=== PATIENT | female | born 1980 | race American Indian/Alaskan Native ===

== ENCOUNTER 2017-05-15 16:23 | Emergency (ER) | payer SELFPAY ==
[2017-05-15 16:35] VITALS: RESP 20
--- NOTE | 2017-05-15 18:22 | C.PDOC ---
History Of Present Illness Yakelin Tolbert is a 36 year old female, with no past medical history, who presents to the emergency department complaining of severe right sided facial and head pain, nasal congestion, and cough onset for x1 month. Patient reports having an ear, eye, and throat infection from the Flu in April. Patient went to the clinic and was given clarithromycin, polymyxin, vigamox, and zithromax with relief of symptoms but then it started again with symptoms waxing and waning. She denies any fever, nausea, vomit, rash, neck pain, shortness of breath or chest pain. No further medical complaints. PMD: None provided. Time Seen by Provider: 05/15/17 17:59 Chief Complaint (Nursing): Headache History Per: Patient History/Exam Limitations: no limitations Onset/Duration Of Symptoms: Days (x1 month) Current Symptoms Are (Timing): Still Present Pain Scale Rating Of: 8 Quality: Sharp Preceeding Symptoms: None Associated Symptoms: denies: Nausea, Vomiting Past Medical History Reviewed: Historical Data, Nursing Documentation, Vital Signs Vital Signs: Last Vital Signs Temp 99 F 05/15/17 16:31 Pulse 92 H 05/15/17 16:31 Resp 20 05/15/17 16:31 BP 127/81 05/15/17 16:31 Pulse Ox 99 05/15/17 18:27 Surgical History: No Surg Hx - [facility] Procedures TETANUS TOXOID ADMINIST (07/20/14) Family History: States: Unknown Family Hx - Social History Hx Tobacco Use: No Hx Alcohol Use: No Hx Substance Use: No - Immunization History Hx Tetanus Toxoid Vaccination: No Hx Influenza Vaccination: No Hx Pneumococcal Vaccination: No Review Of Systems Except As Marked, All Systems Reviewed And Found Negative. Constitutional: Positive for: Other (right sided facial and head pain). Negative for: Fever ENT: Positive for: Nose Congestion Respiratory: Positive for: Cough Gastrointestinal: Negative for: Nausea, Vomiting Skin: Negative for: Rash Physical Exam - Physical Exam Appears: No Acute Distress Skin: Normal Color, Warm, Dry Head: Atraumatic, Normacephalic Eye(s): bilateral: Normal Inspection, PERRL, EOMI Ear(s): Bilateral: Normal Nose: Normal Throat: Normal Neck: Normal, Normal ROM, Supple Lymphatic: No Adenopathy Cardiovascular: Rhythm Regular Respiratory: Normal Breath Sounds, No Accessory Muscle Use Gastrointestinal/Abdominal: Normal Exam, Soft, No Tenderness, No Guarding, No Rebound Extremity: Normal ROM, No Pedal Edema, No Deformity, No Swelling Neurological/Psych: Oriented x3, Normal Speech, Normal Motor, Normal Sensation ED Course And Treatment O2 Sat by Pulse Oximetry: 99 (RA) Pulse Ox Interpretation: Normal Medical Decision Making Medical Decision Making: Initial Impression: Headache Initial Plan: --Tylenol 975 mg PO --Motrin Tab 600 mg PO --Urinalysis --reevaluation Patient feeling much betyter after medication, will d/c with recommendation to return to ED if needed. Disposition - Disposition Disposition: HOME/ ROUTINE Disposition Time: 18:54 Condition: STABLE Forms: [facility] (Maltese), General Discharge Instructions - POA Present On Arrival: None - Clinical Impression Clinical Impression: Headache, Viral syndrome - Scribe Statement Cristian Mishra Provider Attestation: All medical record entries made by the Scribe were at my direction and personally dictated by me. I have reviewed the chart and agree that the record accurately reflects my personal performance of the history, physical exam, medical decision making, and the department course for this patient. I have also personally directed, reviewed, and agree with the discharge instructions and disposition.
[2017-05-15 18:58] VITALS: BP 121/78; PULSE 86; TEMP 98.6; O2SAT 100
== END 2017-05-15 19:04 | disposition home or self-care (01) ==
LOC: C.ER 16:23
DX: R51 Headache (principal); B34.9 Viral infection, unspecified

== ENCOUNTER 2018-04-11 16:13 | Emergency (ER) | payer OTHER ==
[2018-04-11 16:25] VITALS: O2SAT 99
[2018-04-11 16:36] VITALS: BMI 25.4
--- NOTE | 2018-04-11 16:49 | C.PDOC ---
History Of Present Illness 37 yr old F w no pmhx p/w headache and chills. Pt notes headache and chills over the past couple of days, worsening slowly. No neck stiffness, trauma or fall. Pt notes she did not get a flu shot this season. No cough, chest pain or sob. No abdominal pain, constipation or diarrhea. No dark or bloody stool or urinary complaints. No abnl vaginal d/c. No other complaints Time Seen by Provider: 04/11/18 16:47 Chief Complaint (Nursing): Headache Past Medical History Vital Signs: Last Vital Signs Temp 99.4 F 04/11/18 16:24 Pulse 81 04/11/18 16:24 Resp 20 04/11/18 16:24 BP 146/80 04/11/18 16:24 Pulse Ox 99 04/11/18 16:24 - [facility] Procedures TETANUS TOXOID ADMINIST (07/20/14) Family History: States: Unknown Family Hx - Social History Hx Tobacco Use: No Hx Alcohol Use: No Hx Substance Use: No - Immunization History Hx Tetanus Toxoid Vaccination: No Hx Influenza Vaccination: No Hx Pneumococcal Vaccination: No Review Of Systems Constitutional: Positive for: Chills, Weakness, Malaise. Negative for: Fever, Sweats, Weight loss Eyes: Negative for: Pain, Vision Change, Conjunctivae Inflammation, Eyelid Inflammation ENT: Negative for: Ear Pain, Ear Discharge, Nose Pain, Nose Congestion, Mouth Pain, Throat Swelling Cardiovascular: Negative for: Chest Pain, Palpitations, Orthopnea, Edema Respiratory: Negative for: Cough, Shortness of Breath, SOB with Excertion, Pleuritic Pain Gastrointestinal: Positive for: Nausea. Negative for: Vomiting, Abdominal Pain, Constipation, Melena, Hematochezia Genitourinary: Negative for: Dysuria, Frequency, Incontinence, Hematuria, Vaginal Discharge, Vaginal Bleeding, Pelvic Pain, Rash Musculoskeletal: Negative for: Neck Pain, Shoulder Pain Neurological: Positive for: Headache. Negative for: Weakness, Numbness, Change in Speech, Confusion, Seizures, Altered Mental Status, Dizziness Psych: Negative for: Anxiety, Depression, Psychosis, Suicidal ideation Physical Exam - Physical Exam Appears: Well, Non-toxic, No Acute Distress Skin: Normal Color, Warm Head: Atraumatic, Normacephalic, No Tenderness, No Abrasion, No Laceration Eye(s): bilateral: Normal Inspection Ear(s): Bilateral: Normal Nose: Normal, No Flaring Oral Mucosa: Moist Tongue: Normal Appearing, No Swelling, No Lesions Neck: Normal, Normal ROM, No Decreased ROM, No Trachea Midline, No Step Off Deformity, Supple, Other (no kerning or brudzinskis sign) Chest: Symmetrical, No Deformity, No Tenderness Cardiovascular: Rhythm Regular, No Rhythm Irregular Respiratory: Normal Breath Sounds, No Decreased Breath Sounds, No Accessory Muscle Use Gastrointestinal/Abdominal: Normal Exam, No Tenderness, No Mass, No Distention Back: Normal Inspection, No CVA Tenderness Extremity: Normal ROM, No Tenderness, No Pedal Edema, No Calf Tenderness, Capillary Refill (normal), No Deformity, No Swelling Extremity: Bilateral: Atraumatic Pulses: Left Dorsalis Pedis: Normal, Right Dorsalis Pedis: Normal Neurological/Psych: Oriented x3, Normal Speech, Normal Cognition, Normal Cranial Nerves, No Cerebellar Signs, Normal Motor, Normal Sensation Gait: Steady Extremity: Right: No Drift, Left: No Drift, Upper: No Drift, Lower: No Drift ED Course And Treatment - Laboratory Results Result Diagrams: 04/11/18 18:12 04/11/18 18:12 O2 Sat by Pulse Oximetry: 99 Medical Decision Making Medical Decision Makin yr old female p/w headache, myalgias and diffuse weakness. No meningeal signs no upgoing or downgoing weakness. No FND. No fever. No cough or neck pain or dysphagia/odynophagia/ change in phonation. Likely flu vs viral syndrome. will seek imaging and labs 1846 labs, imaging unremarkable neuro exam remains unchanged, stable Pain improved: requesting pain meds for home, will give toradol. remains w/ out meningeal signs or worst BHATIA / sudden onset of BHATIA. Likely viral syndrome, given negative flu clear for d/c home Disposition - Disposition Disposition Time: 18:47 Condition: GOOD Forms: [employer] (Croatian) - Clinical Impression Clinical Impression: URI (upper respiratory infection), Viral infection
[2018-04-11] MEDS ORDERED: Sodium Chloride 0.9% 1,000 ML IV ONE (16:50)
--- NOTE | 2018-04-11 17:25 | CT ---
Date of service: 04/11/2018 PROCEDURE: CT HEAD WITHOUT CONTRAST. HISTORY: arriola COMPARISON: None available. TECHNIQUE: Axial computed tomography images were obtained through the head/brain without intravenous contrast. Radiation dose: Total exam DLP = 953.54 mGy-cm. This CT exam was performed using one or more of the following dose reduction techniques: Automated exposure control, adjustment of the mA and/or kV according to patient size, and/or use of iterative reconstruction technique. FINDINGS: HEMORRHAGE: No intracranial hemorrhage. BRAIN: Normal cooper-white matter differentiation and density are appreciated throughout the cerebrum and cerebellum with the brainstem appearing unremarkable as well. There is no mass effect. There is no suspicious extra-axial fluid collection and the midline brain anatomy appears diffusely unremarkable. VENTRICLES: Unremarkable. No hydrocephalus. CALVARIUM: No destructive bony lesion or displaced fracture identified including through the skullbase. PARANASAL SINUSES: Unremarkable as visualized. No significant inflammatory changes. MASTOID AIR CELLS: Unremarkable as visualized. No inflammatory changes. OTHER FINDINGS: None. IMPRESSION: Unremarkable noncontrast CT of the Head.
--- NOTE | 2018-04-11 17:50 | RAD ---
Date of service: 04/11/2018 HISTORY: chills COMPARISON: No prior. TECHNIQUE: Chest PA and lateral FINDINGS: LUNGS: No active pulmonary disease. PLEURA: No significant pleural effusion identified. No pneumothorax apparent. CARDIOVASCULAR: No aortic atherosclerotic calcification present. Normal cardiac size. No pulmonary vascular congestion. OSSEOUS STRUCTURES: No significant abnormalities. VISUALIZED UPPER ABDOMEN: Normal. OTHER FINDINGS: None. IMPRESSION: No active disease.
[2018-04-11 18:16] LABS: BASO % 0.3 % (0.0-2.0); EOS % 0.1 % (0.0-4.0); HEMOGLOBIN 12.6 g/dL (11.0-16.0); LYMPH # 1.2 K/uL (1.0-4.3); LYMPH % 14.9 % (20.0-40.0); MEAN CELL VOLUME 79.5 fL (81.0-99.0); MEAN CORPUSCULAR HEMOGLOBIN 27.1 pg (27.0-31.0); MEAN CORPUSCULAR HGB CONC 34.1 g/dL (33.0-37.0); MEAN PLATELET VOLUME 9.4 fL (7.2-11.7); MONO # 0.5 K/uL (0.0-0.8); MONO % 6.8 % (0.0-10.0); NEUT # 6.1 K/uL (1.8-7.0); NEUT % 77.9 % (50.0-75.0); NRBC % 0.1 % (0.0-2.0); RBC 4.66 Mil/uL (3.80-5.20); RED CELL DISTRIBUTION WIDTH 13.9 % (11.5-14.5); WHITE BLOOD COUNT 7.8 K/uL (4.8-10.8)
[2018-04-11 18:34] LABS: ALB/GLOB RATIO 1.2 (1.0-2.1); ALBUMIN 4.3 g/dL (3.5-5.0); ALT/SGPT 20 U/L (9-52); AST/SGOT 21 U/L (14-36); BLOOD UREA NITROGEN 8 mg/dL (7-17); CALCIUM 9.1 mg/dl (8.6-10.4); GFR NON-AFRICAN AMERICAN > 60
[2018-04-11 19:21] VITALS: BP 131/89; PULSE 74; RESP 18; TEMP 99.2
== END 2018-04-11 19:21 | disposition home or self-care (01) ==
LOC: C.ER 16:13
DX: J06.9 Acute upper respiratory infection, unspecified (principal); B34.9 Viral infection, unspecified